=== PATIENT | female | born 1995 | race Caucasian/White ===

== ENCOUNTER 2022-05-20 15:29 | Emergency (ER) | payer OTHER ==
[2022-05-20 15:41] VITALS: BP 132/88; PULSE 130
[2022-05-20] MEDS ORDERED: Metoclopramide 10 MG/2 ML SDV IVPUSH ONE (15:58)
[2022-05-20] MEDS ORDERED: Sodium Chloride 0.9% 1,000 ML IV STA (15:58)
[2022-05-20] MEDS ORDERED: HYDROmorphone 0.5 MG/0.5 ML Syringe IVPUSH ONE (16:00)
[2022-05-20] MEDS: Sodium Chloride 0.9% 10 ML Syringe FLUSH PRN ×2 (16:19→16:47)
[2022-05-20] MEDS ORDERED: Sodium Chloride 0.9% 10 ML Syringe FLUSH ONE (16:46)
[2022-05-20] MEDS ORDERED: Iopamidol 612 MG/ML 100 ML Bottle IVPUSH ONE (16:46)
== END 2022-05-20 17:22 | disposition home or self-care (01) ==
LOC: JD.ED 15:29
DX: A08.4 Viral intestinal infection, unspecified (principal); E86.0 Dehydration; Z79.4 Long term (current) use of insulin; Z79.899 Other long term (current) drug therapy
CPT/HCPCS: 36415; 74177; 80053; 81001; 83690; 84703; 85025; 96361; 96374; 99284; J2765; J3490; J7030; Q9967

== ENCOUNTER 2024-01-19 21:14 | Emergency (ER) | payer OTHER ==
[2024-01-19 21:32] VITALS: BP 148/89; PULSE 97
[2024-01-19] MEDS ORDERED: Sodium Chloride 0.9% 10 ML Syringe FLUSH PRN (21:42)
[2024-01-19 21:51] LABS: APPEARANCE,URINE CLEAR (Clear); BILIRUBIN,URINE NEGATIVE (Negative); COLOR,URINE YELLOW (Yellow); GLUCOSE,URINE 2+ (Negative); KETONES,URINE NEGATIVE (Negative); LEUKOCYTE ESTERASE,URINE TRACE (Negative); NITRITE,URINE NEGATIVE (Negative); OCCULT BLOOD,URINE NEGATIVE (Negative); PROTEIN,URINE NEGATIVE (Negative); UROBILINOGEN,URINE 0.2 (0.2-1.0)
[2024-01-19 22:22] LABS: BACTERIA,URINE FEW /hpf (FEW); MUCUS,URINE FEW /hpf (FEW); RBC,URINE 0-5 /hpf (0-5)
[2024-01-19 22:35] LABS: BASOPHILS ABSOLUTE AUTO 0.1 K/mm3 (0.0-0.2); BASOPHILS PERCENT AUTO 0.4 % (0.0-1.0); EOSINOPHILS ABSOLUTE AUTO 0.6 K/mm3 (0.0-0.4); EOSINOPHILS PERCENT AUTO 3.4 % (0.0-6.0); HEMATOCRIT 31.8 % (37.0-47.0); HEMOGLOBIN 10.1 gm/dl (12.0-16.0); IMMATURE GRAN ABSOLUTE AUTO 0.53 K/mm3 (0.00-0.05); IMMATURE GRAN PERCENT AUTO 3.3 % (0.0-0.4); LYMPHOCYTES ABSOLUTE AUTO 4.6 K/mm3 (1.0-4.8); LYMPHOCYTES PERCENT AUTO 28.6 % (24.0-44.0); MEAN CORPUSCULAR HEMOGLOBIN 26.4 pg (28.0-32.0); MEAN CORPUSCULAR HGB CONC 31.8 g/dl (32.0-36.0); MEAN CORPUSCULAR VOLUME 83.2 fl (83.0-99.0); MEAN PLATELET VOLUME 8.4 fl (9.4-12.3); MONOCYTES ABSOLUTE AUTO 1.2 K/mm3 (0.0-0.8); MONOCYTES PERCENT AUTO 7.6 % (0.0-8.0); NEUTROPHILS PERCENT AUTO 56.7 % (41.0-71.0); NRBC ABSOLUTE 0.03 (0.00-0.02); NRBC PERCENT 0.2 % (0.0-0.2); PLATELET COUNT,PLT 401 K/mm3 (150-400); RED BLOOD CELL COUNT 3.82 M/mm3 (4.10-5.30); WHITE BLOOD CELL COUNT,WBC 15.96 K/mm3 (3.9-11.3)
[2024-01-19] MEDS: Acetaminophen 325 MG Tab PO ONE (22:39)
[2024-01-19 23:37] LABS: A/G RATIO 0.6 (1-2); ALBUMIN 2.5 g/dl (3.4-5.0); BILIRUBIN TOTAL 0.1 mg/dL (0.2-1.0); CALCIUM 9.5 mg/dL (8.5-10.1); CREATININE 0.8 mg/dL (0.55-1.02); EST CRCL DRUG DOSING (CG) 96.26 mL/min; MAGNESIUM 1.7 mg/dL (1.8-2.4); PROTEIN TOTAL,TP 6.5 g/dl (6.4-8.2)
[2024-01-19 23:40] LABS: LACTIC ACID 0.6 mmol/L (0.4-2.0)
[2024-01-20 00:54] LABS: CREATININE,URINE RAND 83.2 mg/dL (30.0-125.0); PROTEIN,URINE RANDOM 8.4 mg/dL (0.0-11.8)
== END 2024-01-20 00:49 | disposition home or self-care (01) ==
LOC: JD.ED 21:14
DX: O99.891 Other specified diseases and conditions complicating pregnancy (principal); R10.11 Right upper quadrant pain; R10.13 Epigastric pain; Z79.899 Other long term (current) drug therapy; Z3A.20 20 weeks gestation of pregnancy
CPT/HCPCS: 36415; 76705; 80053; 81001; 82570; 83605; 83615; 83690; 83735; 84156; 85025; 87086; 99284; A9270; 99283

== ENCOUNTER 2024-05-27 06:58 | Inpatient (IN) | payer OTHER ==
[2024-05-27] MEDS ORDERED: Lidocaine 2% with EPINEPHrine 1:200,000 20 ML SDV ONE (07:00)
[2024-05-27] MEDS ORDERED: Lidocaine 1% 50 ML MDV INJECT PRN (07:12)
[2024-05-27] MEDS ORDERED: Nalbuphine 10 MG/1 ML Vial IVPUSH PRN (07:12)
[2024-05-27] MEDS ORDERED: Acetaminophen 325 MG Tab PO PRN ×2 (07:12→17:52)
[2024-05-27] MEDS ORDERED: Sodium Chloride 0.9% 10 ML Syringe FLUSH PRN (07:12)
[2024-05-27 07:52] LABS: BASOPHILS ABSOLUTE AUTO 0.1 K/mm3 (0.0-0.2); BASOPHILS PERCENT AUTO 0.6 % (0.0-1.0); EOSINOPHILS ABSOLUTE AUTO 0.3 K/mm3 (0.0-0.4); EOSINOPHILS PERCENT AUTO 2.7 % (0.0-6.0); HEMATOCRIT 44.2 % (37.0-47.0); HEMOGLOBIN 14.7 gm/dl (12.0-16.0); IMMATURE GRAN ABSOLUTE AUTO 0.45 K/mm3 (0.00-0.05); IMMATURE GRAN PERCENT AUTO 3.5 % (0.0-0.4); LYMPHOCYTES ABSOLUTE AUTO 2.4 K/mm3 (1.0-4.8); LYMPHOCYTES PERCENT AUTO 19.1 % (24.0-44.0); MEAN CORPUSCULAR HEMOGLOBIN 29.4 pg (28.0-32.0); MEAN CORPUSCULAR HGB CONC 33.3 g/dl (32.0-36.0); MEAN CORPUSCULAR VOLUME 88.4 fl (83.0-99.0); MEAN PLATELET VOLUME 9.4 fl (9.4-12.3); MONOCYTES ABSOLUTE AUTO 1.1 K/mm3 (0.0-0.8); MONOCYTES PERCENT AUTO 8.9 % (0.0-8.0); NEUTROPHILS ABSOLUTE AUTO 8.3 K/mm3 (1.8-7.7); NEUTROPHILS PERCENT AUTO 65.2 % (41.0-71.0); PLATELET COUNT,PLT 292 K/mm3 (150-400)
[2024-05-27] MEDS: Lactated Ringers 1,000 ML IV SCH (08:36)
[2024-05-27] MEDS: Oxytocin/0.9 % Sodium Chloride 30 UNIT/500 ML BAG IV SCH (08:36)
[2024-05-27] MEDS ORDERED: diphenhydrAMINE 50 MG/ML SDV IVPUSH PRN (09:31)
[2024-05-27] MEDS ORDERED: ePHEDrine 50 MG/ML SDV IVPUSH PRN (09:31)
[2024-05-27] MEDS: Bupivacaine/fentaNYL/NS 100 ML Bag EPIDUR PRN (11:40)
[2024-05-27] MEDS: Ondansetron 4 MG/2 ML SDV IVPUSH PRN (15:30)
[2024-05-27] MEDS ORDERED: Docusate Sodium 100 MG Cap PO PRN (17:52)
[2024-05-27] MEDS: Benzocaine/Menthol 20%-0.5% Spray 78 GM Cannister TOP PRN (18:16)
[2024-05-27] MEDS: Witch Hazel Medicated Pads 40/Jar TOP PRN (18:17)
[2024-05-27] MEDS: Ibuprofen 600 MG Tab PO SCH (18:18)
[2024-05-27] MEDS: Venlafaxine 75 MG Cap.ER PO SCH (22:18)
[2024-05-28] MEDS: Venlafaxine 75 MG Cap.ER PO SCH (07:49)
[2024-05-28] MEDS: Sodium Chloride 0.9% 10 ML Syringe FLUSH SCH (07:50)
[2024-05-29 05:27] VITALS: BP 136/62; PULSE 86
== END 2024-05-29 10:15 | disposition home or self-care (01) | DRG 807 ==
LOC: JD.OB 06:58 → OBSVTOIN 15:51 → JD.OB 15:52
PROVIDERS: ADMIT Obstetrics & Gynecology; ATTEND Obstetrics & Gynecology
PROC: 3E0R3BZ Introduction of Anesthetic Agent into Spinal Canal, Percutaneous Approach (ICD-10-PCS; principal; 2024-05-27)
PROC: 0U7C7ZZ Dilation of Cervix, Via Natural or Artificial Opening (ICD-10-PCS; principal; 2024-05-27)
PROC: 10907ZC Drainage of Amniotic Fluid, Therapeutic from Products of Conception, Via Natural or Artificial Opening (ICD-10-PCS; principal; 2024-05-27)
PROC: 0KQM0ZZ Repair Perineum Muscle, Open Approach (ICD-10-PCS; principal; 2024-05-27)
PROC: 3E033VJ Introduction of Other Hormone into Peripheral Vein, Percutaneous Approach (ICD-10-PCS; principal; 2024-05-27)
PROC: 10E0XZZ Delivery of Products of Conception, External Approach (ICD-10-PCS; principal; 2024-05-27)
DX: O24.424 Gestational diabetes mellitus in childbirth, insulin controlled (principal); Z37.0 Single live birth; Z3A.38 38 weeks gestation of pregnancy; O99.344 Other mental disorders complicating childbirth; O99.214 Obesity complicating childbirth; O70.1 Second degree perineal laceration during delivery; F41.9 Anxiety disorder, unspecified; F32.A Depression, unspecified; Z79.01 Long term (current) use of anticoagulants; Z86.16 Personal history of COVID-19; Z90.49 Acquired absence of other specified parts of digestive tract; Z98.890 Other specified postprocedural states; Z79.899 Other long term (current) drug therapy; O77.0 Labor and delivery complicated by meconium in amniotic fluid; O69.81X0 Labor and delivery complicated by cord around neck, without compression, not applicable or unspecified
CPT/HCPCS: 36415; 51702; 59025; 59409; 82947; 85025; 86592; 86850; 86900; 86901; A9270-GY; C1726; J2405; J3490; J7120; J7999